=== PATIENT | female | born 1995 | race American Indian/Alaskan Native ===

== ENCOUNTER 2018-07-29 18:12 | Emergency (ER) | payer OTHER ==
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
[2018-07-29] MEDS ORDERED: NORCO 5/325 PO ONE (20:47)
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
[2018-07-29] MEDS ORDERED: FLEXERIL PO ONE (22:16)
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
[2018-07-29 23:51] VITALS: BP 143/93
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
== END 2018-07-29 23:47 | disposition home or self-care (01) ==
LOC: ED 18:12
DX: S16.1XXA Strain of muscle, fascia and tendon at neck level, initial encounter (principal); R51 Headache; Z88.0 Allergy status to penicillin; V87.7XXA Person injured in collision between other specified motor vehicles (traffic), initial encounter; Y93.89 Activity, other specified; Y92.488 Other paved roadways as the place of occurrence of the external cause; Y99.8 Other external cause status
CPT/HCPCS: 70450; 72125; 99283

== ENCOUNTER 2020-02-04 20:50 | Emergency (ER) | payer OTHER ==
[2020-02-05] MEDS ORDERED: dexAMETHasone 20 MG/5 ML VIAL IM ONE (00:24)
[2020-02-05] MEDS ORDERED: KETOROLAC 30 MG/1 ML INJ IM ONE (00:24)
[2020-02-05] MEDS ORDERED: AZITHROMYCIN 250 MG TAB PO ONE (00:25)
[2020-02-05] MEDS ORDERED: LIDOCAINE VISCOUS 2% 15 ML ORAL LIQD PO ONE (00:25)
[2020-02-05] MEDS ORDERED: ACETAMINOPHEN 325 MG TAB PO ONE (00:26)
--- NOTE | 2020-02-05 01:51 | Emergency Department Report ---
ED General Adult HPI - General Chief complaint: Sore Throat Stated complaint: SORE/SWELLING THROAT Source: patient Mode of arrival: Ambulatory Limitations: No Limitations - History of Present Illness Initial comments: Patient is a 24-year-old -[place] female with no past medical history presents to the ED with complaint of acute onset persistent severe sore throat with dysphagia, swollen tonsils and white exudates for the last 2 days. Patient states that she has not been able to eat anything or drink anything because of severe pain. Patient states that no one else at home has had similar symptoms. Patient denies dizziness, syncope, headache, fever, chills, nausea, vomiting, cough, nasal and sinus congestion, chest pain or shortness of breath, change in vision, abdominal pain or diarrhea. MD Complaint: Sore throat -: Sudden, days(s) (2) Location: mouth Radiation: non-radiation Severity scale (0 -10): 8 Quality: aching, sharp Consistency: constant Improves with: none Worsens with: eating Associated Symptoms: denies other symptoms, loss of appetite. denies: confusion, chest pain, cough, diaphoresis, fever/chills, headaches, malaise, rash, seizure, shortness of breath, syncope, weakness, other Treatments Prior to Arrival: none - Related Data Previous Rx's Medication Instructions Recorded Last Taken Type Cyclobenzaprine [Flexeril] 10 mg PO TID PRN #30 tablet 07/29/18 Unknown Rx Menthol/Camphor [[place] 1 applicatio TP QID PRN #1 tube 07/29/18 Unknown Rx Ointment] Naproxen 500 mg PO BID PRN #30 tablet 07/29/18 Unknown Rx Azithromycin [Zithromax Z-FELICIANO] 250 mg PO DAILY #6 tablet 02/05/20 Unknown Rx Ibuprofen [Motrin] 600 mg PO Q8H PRN #30 tablet 02/05/20 Unknown Rx Lidocaine Viscous 2% 10 ml PO Q4H PRN #120 ml 02/05/20 Unknown Rx predniSONE [Deltasone] 40 mg PO QDAY #10 tab 02/05/20 Unknown Rx Allergies Allergy/AdvReac Type Severity Reaction Status Date / Time Penicillins Allergy Hives Verified 07/29/18 18:17 ED Review of Systems ROS: Stated complaint: SORE/SWELLING THROAT Other details as noted in HPI Constitutional: denies: chills, fever Eyes: denies: eye pain, eye discharge, vision change ENT: throat pain. denies: ear pain, dental pain, epistaxis, congestion Respiratory: denies: cough, shortness of breath, wheezing Cardiovascular: denies: chest pain, palpitations Endocrine: no symptoms reported Gastrointestinal: denies: abdominal pain, nausea, diarrhea Genitourinary: denies: urgency, dysuria, discharge Musculoskeletal: denies: back pain, joint swelling, arthralgia Skin: denies: rash, lesions Neurological: denies: headache, weakness, paresthesias Psychiatric: denies: anxiety, depression Hematological/Lymphatic: denies: easy bleeding, easy bruising ED Past Medical Hx - Past Medical History Previous Medical History?: No - Surgical History Past Surgical History?: No - Social History Smoking Status: Never Smoker Substance Use Type: Marijuana - Medications Home Medications: Home Medications Medication Instructions Recorded Confirmed Last Taken Type Cyclobenzaprine [Flexeril] 10 mg PO TID PRN #30 tablet 07/29/18 Unknown Rx Menthol/Camphor [[place] 1 applicatio TP QID PRN #1 tube 07/29/18 Unknown Rx Ointment] Naproxen 500 mg PO BID PRN #30 tablet 07/29/18 Unknown Rx Azithromycin [Zithromax Z-FELICIANO] 250 mg PO DAILY #6 tablet 02/05/20 Unknown Rx Ibuprofen [Motrin] 600 mg PO Q8H PRN #30 tablet 02/05/20 Unknown Rx Lidocaine Viscous 2% 10 ml PO Q4H PRN #120 ml 02/05/20 Unknown Rx predniSONE [Deltasone] 40 mg PO QDAY #10 tab 02/05/20 Unknown Rx ED Physical Exam - General Limitations: No Limitations General appearance: alert, in no apparent distress - Head Head exam: Present: atraumatic, normocephalic, normal inspection - Eye Eye exam: Present: normal appearance, PERRL, EOMI - ENT ENT exam: Present: mucous membranes moist, TM's normal bilaterally, normal external ear exam, other (Erythematous oropharynx and tonsillar thick white exudates) - Neck Neck exam: Present: normal inspection, full ROM, lymphadenopathy. Absent: tenderness - Respiratory Respiratory exam: Present: normal lung sounds bilaterally. Absent: respiratory distress, wheezes, rales, rhonchi, chest wall tenderness, accessory muscle use, decreased breath sounds - Cardiovascular Cardiovascular Exam: Present: regular rate, normal rhythm, normal heart sounds. Absent: systolic murmur, diastolic murmur, rubs, gallop - GI/Abdominal GI/Abdominal exam: Present: soft, normal bowel sounds. Absent: tenderness, guarding, rebound, hyperactive bowel sounds, hypoactive bowel sounds, organomegaly - Extremities Exam Extremities exam: Present: normal inspection, full ROM, normal capillary refill - Back Exam Back exam: Present: normal inspection, full ROM. Absent: tenderness, CVA tenderness (R), CVA tenderness (L), muscle spasm, paraspinal tenderness, vertebral tenderness - Neurological Exam Neurological exam: Present: alert, oriented X3, CN II-XII intact, normal gait, reflexes normal - Psychiatric Psychiatric exam: Present: normal affect, normal mood - Skin Skin exam: Present: warm, dry, intact, normal color. Absent: rash ED Course Vital Signs 02/04/20 21:41 Temperature 98.7 F Pulse Rate 84 Respiratory 18 Rate Blood Pressure 138/98 O2 Sat by Pulse 100 Oximetry ED Medical Decision Making - Medical Decision Making This is a 24-year-old -[place] female with no past medical history presents to the ED with complaint of acute onset persistent severe sore throat with dysphagia, swollen tonsils and white exudates for the last 2 days. Patient states that she has not been able to eat anything or drink anything because of severe pain. Patient states that no one else at home has had similar symptoms. In the ED, patient is alert and oriented x3 and is not in distress. Patient was treated empirically for suspected acute streptococcal pharyngitis symptom cellulitis. Patient received Decadron injection, viscous lidocaine 2%, Toradol and azithromycin. On reevaluation, patient felt better, pain is well controlled medications. Patient was discharged home on pain medications and antibiotics and advised to follow-up with her primary care physician in 7 to 10 days for reevaluation or return to the ED immediately if symptoms get worse. - Differential Diagnosis Strep pharyngitis/Tonsillitis; Mononucleosis; URI; Viral pharyngitis Critical care attestation.: If time is entered above; I have spent that time in minutes in the direct care of this critically ill patient, excluding procedure time. ED Disposition Clinical Impression: Acute streptococcal pharyngitis Acute streptococcal tonsillitis Qualifiers: Streptococcal tonsillitis recurrence: non-recurrent Qualified Code(s): J03.00 - Acute streptococcal tonsillitis, unspecified Disposition: TO HOME OR SELFCARE Is pt being admited?: No Does the pt Need Aspirin: No Condition: Stable Instructions: Tonsillitis, [id number], Strep Throat, Adult, [id number] Additional Instructions: Take medication with food, drink plenty of fluids and follow-up with your primary care physician in 5 to 7 days for reevaluation. Return to the ED immediately if symptoms get worse. Prescriptions: predniSONE [Deltasone] 40 mg PO QDAY #10 tab Lidocaine Viscous 2% 10 ml PO Q4H PRN #120 ml PRN Reason: Sore Throat Ibuprofen [Motrin] 600 mg PO Q8H PRN #30 tablet PRN Reason: Pain Azithromycin [Zithromax Z-FELICIANO] 250 mg PO DAILY #6 tablet Referrals: [facility] [Provider Group] - 7-10 days Forms: Work/School Release Form(ED) Time of Disposition: 01:51 Print Language: LAO
[2020-02-05 02:19] VITALS: BP 127/74
== END 2020-02-05 02:09 | disposition home or self-care (01) ==
LOC: ED 20:50
DX: J03.00 Acute streptococcal tonsillitis, unspecified (principal); F12.10 Cannabis abuse, uncomplicated; Z79.1 Long term (current) use of non-steroidal anti-inflammatories (NSAID); Z79.2 Long term (current) use of antibiotics; Z79.899 Other long term (current) drug therapy; Z88.0 Allergy status to penicillin
CPT/HCPCS: 96372; 99282; J1100; J1885